=== PATIENT | male | born 1970 | race Caucasian/White ===

== ENCOUNTER 2019-11-10 23:09 | Emergency (ER) | payer OTHER ==
[2019-11-10] MEDS ORDERED: Sodium Chloride 0.9% 1,000 ML IV ONE (23:12)
[2019-11-10] MEDS ORDERED: EPINEPHrine 1:10,000 1 MG/10 ML Syringe ONE ×2 (23:12→23:37)
[2019-11-10 23:42] LABS: CHLORIDE,CL 99 mmol/L (98-107); SODIUM,NA 136 mmol/L (136-145)
[2019-11-10 23:43] LABS: ANION GAP 27.9 mmol/L (10-20)
[2019-11-11 00:05] LABS: PTT,PARTIAL THROMBOPLSTIN TIME 52.3 SEC (25.6-32.8)
--- NOTE | 2019-11-11 00:31 | EDM.PDOC ---
ED HPI GENERAL MEDICAL PROBLEM - General Chief Complaint: CPR in Progress Stated Complaint: CODE BLUE Time Seen by Provider: 11/10/19 23:09 Source of Information: Reports: Patient History Limitations: Reports: No Limitations - History of Present Illness INITIAL COMMENTS - FREE TEXT/NARRATIVE: Pt. experienced a witnessed cardiac arrest while walking in [place], [place]. Bystander states that it is the patient's birthday, and he has been drinking and celebrating tonight. EMS was summoned because he collapsed when he was walking. CPR was started. First responders from [place] arrived and resumed CPR. They were unable to get the patient's lungs to inflate with BVM ventilation but chest compressions were performed. [facility] ambulance arrived and scene 26 min. after the 911 call. Pt. was found to be in PEA and CPR was continued. During intubation, pt. was noted to have a large, partially masticated piece of meat in his hypopharynx which was removed with Hamilton forceps. Pt. was sucessfully intubated. Pt. initial ETCO2 was greater than 60. CPR was continued. A total of 5mg epinephrine, 1 amp of sodium bicarb, a 1 mg of atropine were given by EMS. Pt. pupils were fixed at 2-3 mm and non-reactive during transport. Pt. arrived to ER at approx. 2305. At no time had the patient had a pulse. ETCO2 was approx. 30 on arrival to ER with compressions being performed by JASMYNE device. Pt. father states that the patient has had a seizure in the past (1010-18) and had normal EEG, brain MRI. He was referred to Neuro and was not able to drive for the specified time, but he was never or antiepileptic drugs. He has had no sequelae from a neuro standpoint and has returned to work. Dad states that he did have a fall recently and was seen in clinic 11-02-2019 and diagnosed with rib fracture. Apparently this has been improving. Pt. also lives with someone who was recently diagnosed with covid 19, but patient has been asymptomatic. No obvious traumatic injury was noted by EMS. Onset Date: 11/10/19 Treatments RN UTILIZATION MANAGEMENT UM: Reports: CPR, EKG, Intubation, IV/IO, Oxygen, See EMS Report - Related Data Allergies Allergy/AdvReac Type Severity Reaction Status Date / Time naproxen [From Aleve] Allergy Edema Verified 11/11/19 01:01 Home Meds: Home Meds Lisinopril/Hydrochlorothiazide [Zestoretic 10-12.5 mg Tablet] 1 each PO DAILY 11/11/19 [History] ED ROS GENERAL - Review of Systems Review Of Systems: Unable To Obtain (Please see HPI) Reason Not Obtained: cardiac arrest ED EXAM, GENERAL - Physical Exam Exam: See Below Exam Limited By: Other General Appearance: Other (Unresponsive) Eye Exam: Bilateral Eye: Other (fixed, dilated to 4) Throat/Mouth: Other (intubated with tube tie in place. No obvious trauma noted.) Head: Atraumatic, Normocephalic Neck: Supple Respiratory/Chest: Other (apneic ) Cardiovascular: Other (No pulse.) Peripheral Pulses: 0: Carotid (L), Femoral (L) GI/Abdominal: Soft, Distended (Male) Exam: Deferred Rectal (Males) Exam: Deferred Extremities: Mottled, Pallor Neurological: Unresponsive Skin Exam: Mottled, Pallor EKG INTERPRETATION EKG Interpretation Comments: wide complex PEA and eventually asystole. Course - Orders/Labs/Meds Labs: Laboratory Tests 11/10/19 11/10/19 11/10/19 Range/Units 23:15 23:15 23:15 WBC 13.9 H (4.0-10.0) x10^3/uL RBC 4.20 L (4.5-6.0) x10^6/uL Hgb 14.1 (14.0-18.0) g/dL Hct 43.4 (40.0-52.0) % MCV 103.3 H (78.0-93.0) fL MCH 33.6 H (26.0-32.0) pg MCHC 32.5 (32.0-36.0) g/dL RDW Coeff of Broderick 14.0 (10.0-15.0) % Plt Count 250 (130-400) x10^3/uL Add Manual Diff Yes Neutrophils % (Manual) 25 L (50-80) % Band Neutrophils % 5 (0-6) % Lymphocytes % (Manual) 54 H (25-50) % Reactive Lymphs % 6 H (0) % Monocytes % (Manual) 5 (2-11) % Eosinophils % (Manual) 5 H (0-4) % Platelet Estimate Adequate Giant Platelets Few H Macrocytosis 1+ slight H PT 15.4 H (9.5-12.3) SEC INR 1.4 L (2.0-3.5) APTT 52.3 H (25.6-32.8) SEC D-Dimer, Quantitative 18.34 H (<=0.58) mg/LFEU Sodium 136 (136-145) mmol/L Potassium 5.9 H (3.5-5.1) mmol/L Chloride 99 (98-107) mmol/L Carbon Dioxide 15 L (21-32) mmol/L Anion Gap 27.9 H (10-20) mmol/L BUN 7 (7-18) mg/dL Creatinine 1.0 (0.70-1.30) mg/dL Est Cr Clr Drug Dosing TNP Estimated GFR (MDRD) > 60 Glucose 173 H (74-106) mg/dL Calcium 8.6 (8.5-10.1) mg/dL POC Troponin I (0.00-0.08) ng/mL 11/10/19 Range/Units 23:22 WBC (4.0-10.0) x10^3/uL RBC (4.5-6.0) x10^6/uL Hgb (14.0-18.0) g/dL Hct (40.0-52.0) % MCV (78.0-93.0) fL MCH (26.0-32.0) pg MCHC (32.0-36.0) g/dL RDW Coeff of Broderick (10.0-15.0) % Plt Count (130-400) x10^3/uL Add Manual Diff Neutrophils % (Manual) (50-80) % Band Neutrophils % (0-6) % Lymphocytes % (Manual) (25-50) % Reactive Lymphs % (0) % Monocytes % (Manual) (2-11) % Eosinophils % (Manual) (0-4) % Platelet Estimate Giant Platelets Macrocytosis PT (9.5-12.3) SEC INR (2.0-3.5) APTT (25.6-32.8) SEC D-Dimer, Quantitative (<=0.58) mg/LFEU Sodium (136-145) mmol/L Potassium (3.5-5.1) mmol/L Chloride (98-107) mmol/L Carbon Dioxide (21-32) mmol/L Anion Gap (10-20) mmol/L BUN (7-18) mg/dL Creatinine (0.70-1.30) mg/dL Est Cr Clr Drug Dosing Estimated GFR (MDRD) Glucose (74-106) mg/dL Calcium (8.5-10.1) mg/dL POC Troponin I 0.05 (0.00-0.08) ng/mL Meds: Medications Discontinued Medications Generic Name Dose Route Start Last Admin Trade Name Guillermo PRN Reason Stop Dose Admin Epinephrine HCl Confirm 11/10/19 23:37 Epinephrine 1:10,000 Administered 11/10/19 23:38 Dose 2 mg .ROUTE .STK-MED ONE - Re-Assessments/Exams Free Text/Narrative Re-Assessment/Exam: Pt. was moved over to ER bed. bilateral breath sounds were noted prior to moving the patient. JASMYNE device in place during care of patient. ETCO2 approx. 30-40 once moved to bed. CPR was halted. ETCO2 would rapidly decrease into the single digits once compressions were stopped. Pt. was given 1 mg epi on arrival. CPR was continued for several minutes. CPR was halted, and pt. was noted to be in asystole with ETCO2 of approx. 18. Pt. was given a seventh and final dose of epinephrine. CPR continued for several minute. Decision was made to discontinue resuscitation of the patient. Time of 2316. [id number] Dispatched-2203 Enroute-2207 On scene-2226 Enroute to hospital-2250 [facility] hospital-2308 Time of 2316. Departure - Departure Time of Disposition: 12:57 Disposition: 20 Clinical Impression: Cardiac arrest, Choking due to foreign body - Discharge Information Forms: ED Department Discharge - Problem List Review Problem List Initiated/Reviewed/Updated: Yes - Assessment/Plan Plan: Spoke at length with pt. father, Paul. Interpreter Translator consulted and felt the patient did not meet criteria for postmortem examination. [facility] was contacted who conferred with family and released body to [facility] in [place], [place].
== END 2019-11-10 23:17 | disposition expired ==
LOC: VM.ED 23:09
DX: I46.9 Cardiac arrest, cause unspecified (principal); T17.928A Food in respiratory tract, part unspecified causing other injury, initial encounter; Z88.8 Allergy status to other drugs, medicaments and biological substances; Z79.899 Other long term (current) drug therapy
CPT/HCPCS: 36415; 80048; 84484; 85025; 85379; 85610; 85730; 92950; 99285; J0171; J7030; 93010